=== PATIENT | male | born 1965 | race Caucasian/White ===

== ENCOUNTER 2021-10-15 21:23 | Emergency (ER) | payer OTHER, SELFPAY ==
[2021-10-15 21:26] VITALS: BP 154/103; PULSE 94; RESP 17; TEMP 36.1; O2SAT 98
[2021-10-15] MEDS: TETANUS,DIPHTHERIA,AC PERTUSSIS ADULT (0.5 ML) BOOSTRIX IM (21:37)
--- NOTE | 2021-10-15 21:45 | ED.WOUNDLAC ---
HPI - Wound/Laceration General Chief Complaint: Wound/Laceration Stated Complaint: requesting tetanus shot Time Seen by Provider: 10/15/21 21:35 Source: patient Mode of arrival: ambulatory Limitations: no limitations History of Present Illness HPI narrative: This is a 56 year old male who presents for evaluation for a tetanus shot. PAient states he accidently trip and he hit his right palm with rust nail. He has small puncture wound from bettie nail so he came to ER to get tetanus shot. He states he does not have any pain, swelling, numbness or tingling. He is unsure of his last tetanus. He does not think nail when far into his hand. Related Data Allergies Allergy/AdvReac Type Severity Reaction Status Date / Time amoxicillin Allergy Unknown Unknown Verified 10/15/21 21:24 Review of Systems Constitutional: Constitutional: Denies chills Gastrointestinal: Gastrointestinal: Denies nausea and Denies vomiting Integumentary/Breasts: Skin/Breast: Denies erythema and Denies rash Neurologic: Denies focal weakness and Denies numbness PMF Past Medical History Medical History (Updated 10/15/21 @ 21:53 by Shirin Riddle MD) No significant medical problems Family History Family History Other Family history of pancreatic cancer Social History Social History Smoking status: Never smoker Alcohol intake: current Exam Const: General: no acute distress and alert Orientation/consciousness: patient oriented x3 Eyes: EOM: EOMs intact bilaterally Resp: Effort & Inspection: normal respiratory effort Skin: Other: small superficial mid right palm puncture wound Neuro: General: patient oriented x3 and moves all extremities Extrem: Other: right hand with small superficial puncture wound to mid palm. no bleeding, no swelling, otherwise normal hand examination Psych: Mental Status: mental status grossly normal Affect: normal affect Course Reevaluation(s) Reevaluation #1: Patient presents with superficial wound. He would like tetanus shot. I have discussed wound care. Date: 10/15/21 Time: 21:52 Vital Signs Vital signs: Vital Signs Temperature 97 F L 10/15/21 21:26 Pulse Rate 94 10/15/21 21:26 Respiratory Rate 17 10/15/21 21:26 Blood Pressure 154/103 H 10/15/21 21:26 Pulse Oximetry 98 10/15/21 21:26 Temperature 97 F L 10/15/21 21:26 Pulse Rate 94 10/15/21 21:26 Respiratory Rate 17 10/15/21 21:26 Blood Pressure 154/103 H 10/15/21 21:26 Pulse Oximetry 98 10/15/21 21:26 Discharge Plan Discharge Clinical Impression: Puncture wound of hand, right Qualifiers: Encounter type: initial encounter Patient Disposition: Home, Self-Care Condition: Stable Instructions: Antibiotic Form, Puncture Wound (ED) Additional Instructions: Antibiotics were given to prevent infection. Keep your wound clean and dry. Watch for signs of an infection. Prescriptions: New ciprofloxacin HCl [Cipro] 500 mg tablet 500 mg PO Q12H Qty: 6 RF: 0 No Action bupropion HCl 300 mg tablet extended release 24 hr 300 mg PO QAM Qty: 30 RF: 2 Follow-up/Referrals: Raul Byers MD [Primary Care Provider] -
== END 2021-10-15 22:10 | disposition home or self-care (01) ==
LOC: ANHED 21:58
PROVIDERS: Emergency Provider General Practice; PCP Family Medicine
DX: S61.431A Puncture wound without foreign body of right hand, initial encounter (principal); Z23 Encounter for immunization; W01.118A Fall on same level from slipping, tripping and stumbling with subsequent striking against other sharp object, initial encounter
CPT/HCPCS: 90471; 90715; 99283